=== PATIENT | male | born 1965 | race Caucasian/White ===

== ENCOUNTER → 2017-04-14 | Outpatient (CLI) | payer OTHER ==
[~2017-04-14] MED LIST: AMITIZA24 MCG PO; BENADRYL-DPS50 MG/ML IV; BENADRYL25 MG PO; DILAUDID P6 MG/30 ML IV; DILAUDID-DPS2 MG/ML IV; DURAGESIC50 MCG TP; FLAGYL500 MG PO; FLOMAX DPS0.4 MG PO; HABITROL DPS21 MG TP; IRON325 M1 PO; LASIX DPS80 MG PO; LORTAB 10-3251 EACH PO; MAALOX DPS30 ML PO; MICRO-K DPS10 MEQ PO; MIRALAX17 GM PO; NALOXONE H0.4 MG/1 M IV; NEURONTIN300 MG PO; OMEGA-3 DPS1000 MG PO; PROTONIX40 MG PO; SURFAK240 MG PO; TENORMIN DPS50 MG PO; THERAPEUTIC M1 EAC1 PO; TYLENOL EXTRA500 M1 PO; TYLENOL-DPS325 MG PR; TYLENOL325 MG PO; ULTRAM DPS50 MG PO; VALTREX DPS1 GM PO; VITAMIN D-32000 UNIT PO; XANAX0.25 MG PO; ZOLOFT DPS50 MG PO; ZYLOPRIM-DPS300 MG PO
== END | disposition home or self-care (01) ==
LOC: RAD.S 12:23
DX: Z47.89 Encounter for other orthopedic aftercare (principal); Z98.890 Other specified postprocedural states; S82.832D Other fracture of upper and lower end of left fibula, subsequent encounter for closed fracture with routine healing